=== PATIENT | male | born 1960 | race Caucasian/White ===

== ENCOUNTER 2022-01-11 14:27 | Emergency (ER) | payer BC ==
[~2022-01-11] VITALS: Ht 175.3 cm; Wt 95.3 kg
[2022-01-11] MEDS ORDERED: AMLO-62 PO (14:36)
[2022-01-11] MEDS ORDERED: METF-440 PO (14:36)
[2022-01-11 14:57] LABS: CREATININE 0.9 mg/dL (0.6-1.3); HEMATOCRIT 41.6 % (36.7-47.1); MEAN CORPUSCULAR HEMOGLOBIN 29.9 uug (23.8-33.4); MEAN CORPUSCULAR VOLUME 90.1 fL (73.0-96.2); PLATELET COUNT (AUTO) 219 K/uL (152-348); POTASSIUM 3.8 mmol/L (3.5-5.1)
[2022-01-11 15:31] VITALS: BP 144/84
== END 2022-01-11 15:32 | disposition home or self-care (01) ==
LOC: ER 14:27
DX: I10 Essential (primary) hypertension (principal); E11.9 Type 2 diabetes mellitus without complications; Z79.899 Other long term (current) drug therapy
CPT/HCPCS: 36415; 70030-TC; 71045; 85025; 93005; A4663